=== PATIENT | male | born 1995 | race African-American/Black ===

== ENCOUNTER 2020-07-31 20:31 | Emergency (ER) | payer BC, OTHER ==
[~2020-07-31] VITALS: Ht 175.3 cm; Wt 81.7 kg
[2020-07-31] MEDS ORDERED: VALPROIC ACID250 MG PO (20:34)
[2020-07-31 22:10] VITALS: BP 132/89
== END 2020-07-31 22:12 | disposition home or self-care (01) ==
LOC: ER 20:31
DX: F12.929 Cannabis use, unspecified with intoxication, unspecified (principal); R42 Dizziness and giddiness; R11.0 Nausea; R45.89 Other symptoms and signs involving emotional state; Z79.899 Other long term (current) drug therapy